=== PATIENT | female | born 1985 | race Caucasian/White ===

== ENCOUNTER 2024-10-24 17:42 | Emergency (ER) | payer BC, OTHER, SELFPAY ==
[2024-10-24 17:45] VITALS: BP 129/86
[2024-10-24 18:13] LABS: % Basophils 0.5 % (0-2); % Eosinophils 2.3 % (0-6); % Immature Granulocytes 0.2 % (0-0.5); % Lymphocytes 32.2 % (20.5-51.1); % Monocytes 6.2 % (1.7-9.3); % Neutrophils 58.6 % (42.2-75.2); Absolute Eosinophils 0.1 10^3/uL (0-0.7); Absolute Lymphocytes 1.4 10^3/uL (1.2-3.4); Absolute Monocytes 0.3 10^3/uL (0.1-0.6); Absolute Neutrophils 2.6 10^3/uL (1.4-6.5); Hematocrit 34.7 % (37.0-47.0); Hemoglobin 11.9 g/dL (12.0-16.0); Mean Corp Hgb Conc. 34.3 g/dL (33.0-37.0); Mean Corpuscular Hgb 31.2 pg (27.0-31.0); Mean Corpuscular Volume 91.1 fL (81.0-99.0); Mean Platelet Volume 9.5 fL (7.4-10.4); Nucleated Red Blood Cells % 0 %; Platelet Count 316 10^3/uL (130-400); Red Blood Cell Count 3.81 10^6/uL (4.20-5.40); Red Cell Dist. Width 12.2 % (11.5-14.5); Urine Albumin Negative (Neg - Trace); Urine Bilirubin Negative (Negative); Urine Character Clear (Clear); Urine Color Yellow; Urine Glucose Negative (Negative); Urine Ketone Negative (Negative); Urine Leukocyte Negative (Negative); Urine Nitrite Negative (Negative); Urine Occult Blood Negative (Negative); Urine Specific Gravity 1.015 (<1.030); Urine Urobilinogen Negative (Neg - 1+); White Blood Cell Count 4.4 10^3/uL (4.8-10.8)
[2024-10-24 18:21] LABS: HCG, Serum Qualitative Screen Negative
[2024-10-24 18:24] LABS: ALT (SGPT) 21 U/L (0-35); AST (SGOT) 24 U/L (14-36); Albumin 4.4 g/dl (3.5-5.0); Alkaline Phosphatase 33 U/L (38-126); Blood Urea Nitrogen 7 mg/dl (7-17); Calcium 9.2 mg/dl (8.4-10.2); Carbon Dioxide 23 mmol/L (22-30); Chloride 107 mmol/L (98-107); Glucose 103 mg/dl (70-99); Sodium 141 mmol/L (135-145); Total Bilirubin 0.6 mg/dl (0.2-1.3); Total Protein 7.1 g/dl (6.3-8.2); eGFR > 60.00
[2024-10-24 18:25] LABS: Lipase 285 U/L (23-300)
[2024-10-24 19:56] VITALS: BMI 20.6
[2024-10-24] MEDS: TORADOL 30 MG IV (20:04)
[2024-10-24 22:22] VITALS: BP 152/85
--- NOTE | 2024-10-25 00:39 | ED.GENMED ---
History of Present Illness
General
Chief Complaint: Abdominal Pain
Source: patient
Exam Limitations: none
Time Seen by Provider: 10/24/24 19:23
Nursing documentation reviewed up to this point in time: agreed with
Past History
Past History
ED Past Medical History: None
ED Past Surgical History:
Social History
Tobacco: Non-smoker
Alcohol: None
Drug: None
Personal:
Living: with family
Employment: Employed
Family History
Family History: Other
Phy Exam
General Physical Exam
General Presentation: well appearing and no apparent distress
General age: appears stated age
General Skin: warm and dry
General Habitus: normal
Cardiovascular Exam
Cardiovascular Exam: regular rate/rhythm and no edema
Gastrointestinal Exam
Gastrointestinal Exam: normal bowel sounds, soft, no organomegaly, no pulsatile mass and non distended
Palpation: generalized: Mild tenderness
Musculoskeletal Exam
Musculoskeletal Exam: full ROM and neuro vasc intact
Skin Exam
Skin Exam: normal color, warm/dry and no rash
Psychiatric Exam
Psychiatric Exam: normal mood/affect
Course
Orders/Labs/Results
Orders:
Orders
10/24/24 17:44
Test Result ONCE
10/24/24 18:00
Complete Blood Count/With Diff Urgent
Comprehensive Metabolic Panel Urgent
HCG, Serum Qualitative Screen Urgent
Comment: Notify provider if positive test present
Lipase Urgent
Urinalysis Reflex To Culture Urgent
Date Specimen was Collected: 10/24/24
Time Specimen was Collected: 17:44
10/24/24 19:51
CT Abd/pelvis W Iv Cont Urgent
Comment:
Reason For Exam: diffuse abd. pain
Ketorolac [Toradol] 30 mg IV NOW STA
Abnormal Lab Results
10/24/24
18:00
WBC 4.4 L 10^3/uL
(4.8-10.8)
RBC 3.81 L 10^6/uL
(4.20-5.40)
Hgb 11.9 L g/dL
(12.0-16.0)
Hct 34.7 L %
(37.0-47.0)
MCH 31.2 H pg
(27.0-31.0)
Glucose 103 H mg/dl
(70-99)
Alkaline Phosphatase 33 L U/L
(38-126)
10/24/24 18:00
10/24/24 18:00
Vital Signs
Initial and Last Documented VS:
Initial Vital Signs
Temp Pulse Resp BP Pulse Ox
98.7 F 87 18 129/86 100
10/24/24 17:45 10/24/24 17:45 10/24/24 17:45 10/24/24 17:45 10/24/24 17:45
Last Documented Vital Signs
Temp Pulse Resp BP Pulse Ox
98.7 F 84 16 152/85 99
10/24/24 17:45 10/24/24 22:22 10/24/24 22:22 10/24/24 22:22 10/24/24 22:22
ED Attending Note
-
Portions of this chart may have been created with voice recognition software.� Occasional wrong word or��sound alike� substitutions may have occurred due to the inherent limitations of voice recognition software.
Discharge Plan
Departure
Patient Disposition: Home (Routine Discharge)
Date of Disposition: 10/24/24
Time of Disposition: 22:16
Patient with high blood pressure during this ER visit?: No
Condition: Good
Covid-19: Not Applicable
Discharge Problem:
Abdominal pain
Instructions: Abdominal Pain
Prescriptions:
No Action
vit-iron fum-folic ac 1 EACH tablet
1 ea PO DAILY
acetaminophen 325 MG tablet
650 mg PO Q4HPRN PRN (Reason: mild pain) 0RF
sennosides-docusate sodium 1 TABLET tablet
1 tab PO DAILYPRN PRN (Reason: constipation) Qty: 60 0RF
hydromorphone 2 MG tablet
2 mg PO Q4HPRN PRN (Reason: PAIN) Qty: 20 0RF
ferrous sulfate [FeroSul] 325 MG tablet
325 mg PO BID Qty: 60 0RF
Referrals:
NONE,* [Family Provider] -
Joe Rothman, DO [Active] - Call in 1-3 days for appt
Activity Restrictions/Additional Instructions:
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 Return to the emergency department immediately for any changes in/worsening of your symptoms
Interventions
Interventions:
*Risk Screen - Suicide Last Done: 10/24/24 21:30
*General Assessment Last Done: 10/24/24 21:30
*Neglect/Abuse Screening Last Done: 10/24/24 21:30
*ED- Fall Risk Assessment Last Done: 10/24/24 21:30
*ED COVID-19 Vaccine History Last Done: 10/24/24 21:30
*Nursing Disposition Last Done: 10/24/24 22:23
QU-Bbelxp-Dkxezbyfdz Assessment Last Done: 10/24/24 19:57
Discharge Date and Time
Discharge Date/Time: 10/24/24 22:23
Print Language: LEBANESE
== END 2024-10-24 22:23 | disposition home or self-care (01) ==
LOC: EMR 17:42
PROVIDERS: Student in an Organized Health Care Education/Training Program; EMERGENCY PHYSICIAN Emergency Medicine
DX: R10.9 Unspecified abdominal pain (principal); R11.0 Nausea; R19.7 Diarrhea, unspecified; K59.00 Constipation, unspecified; G43.909 Migraine, unspecified, not intractable, without status migrainosus; K58.9 Irritable bowel syndrome, unspecified; M06.9 Rheumatoid arthritis, unspecified
CPT/HCPCS: 99284; 96374; 74177; 80053; 81003; 83690; 84703; 85025; Q9967